=== PATIENT | female | born 1990 | race Caucasian/White ===

== ENCOUNTER 2016-06-24 11:32 | Inpatient (IN) | payer BC ==
[2016-06-24] MEDS: LACTATED RINGERS 1,000 ML IV SCH ×3 (12:05→19:40)
[2016-06-24] MEDS ORDERED: NALOXONE HYDROCHLORIDE 0.4 MG/ML SOL IV PRN (12:07)
[2016-06-24] MEDS ORDERED: EPHEDRINE SULFATE 50 MG/ML SOL IV PRN (12:07)
[2016-06-24] MEDS ORDERED: DIPHENHYDRAMINE 50 MG/ML SOL IV PRN (12:07)
[2016-06-24] MEDS ORDERED: NALBUPHINE HCL 20 MG/ML SOL IV PRN (12:07)
[2016-06-24] MEDS ORDERED: LACTATED RINGERS 1,000 ML IV SCH ×3 (12:15→22:30)
[2016-06-24] MEDS ORDERED: ROPIVACAINE HYDROCHLORIDE 5 MG/ML SOL ONE (12:19)
[2016-06-24] MEDS ORDERED: FENTANYL 250 MCG/ 5ML SOL ONE (12:20)
[2016-06-24 12:26] LABS: BASOPHILS % (AUTO) 1 % (0-3); EOSINOPHILS % (AUTO) 0 % (0-9); HEMATOCRIT 35 % (35-47); MEAN CORPUSCULAR HGB CONC 36.5 gm/dl (32.0-36.0); MEAN CORPUSCULAR VOLUME 91 fL (81-99); MONOCYTES % (AUTO) 4.1 % (0-12); NEUTROPHILS % (AUTO) 70.9 % (37-80)
[2016-06-24] MEDS ORDERED: SODIUM CHLORIDE 0.9% FLUSH 10 ML SOL IV SCH (12:30)
[2016-06-24] MEDS ORDERED: FENTANYL 100MCG/2ML SOL IV PRN (12:40)
[2016-06-24] MEDS ORDERED: SODIUM CHLORIDE 0.9% FLUSH 10 ML SOL IV PRN (12:40)
[2016-06-24] MEDS ORDERED: OXYTOCIN 10000 MU/ML SOL IM PRN (12:40)
[2016-06-24] MEDS ORDERED: MEPIVACAINE HCL 1% MPF 30 ML SOL INFIL PRN (12:40)
[2016-06-24] MEDS ORDERED: METHYLERGONOVINE MALEATE 0.2 MG/ML SOL IM PRN (12:40)
[2016-06-24] MEDS ORDERED: LACTATED RINGERS 1,000 ML IV PRN (12:40)
[2016-06-24] MEDS ORDERED: CARBOPROST 250 MCG/ML SOL IM PRN (12:40)
[2016-06-24] MEDS ORDERED: SODIUM CHLORIDE 0.9% 50 ML 25 ML IV PRN (13:22)
[2016-06-24] MEDS ORDERED: CEFAZOLIN SODIUM 1 GM PDS IVP ONE (13:22)
[2016-06-24] MEDS ORDERED: CITRIC ACID/SODIUM CITRATE SOL PO ONE (13:22)
[2016-06-24] MEDS ORDERED: CEFAZOLIN SODIUM 1 GM PDS ONE (13:51)
[2016-06-24] MEDS ORDERED: OXYTOCIN 10000 MU/ML SOL ONE (13:51)
[2016-06-24 14:05] LABS: ABO O; ANTIBODY SCREEN Negative; RH TYPE Positive
[2016-06-24] MEDS ORDERED: MORPHINE SULFATE 0.5 MG/ML SOL ONE (14:11)
[2016-06-24] MEDS ORDERED: [UNRECOGNIZED DRUG - OTHER] IV ONE (14:14)
[2016-06-24] MEDS ORDERED: KETOROLAC TROMETHAMINE 30 MG/ML SOL ONE (15:09)
[2016-06-24] MEDS ORDERED: MORPHINE SULFATE 10 MG/ML SOL ONE (15:36)
[2016-06-24] MEDS ORDERED: DIPHENHYDRAMINE 25 MG CAP PO PRN (16:12)
[2016-06-24] MEDS ORDERED: TEMAZEPAM 15MG 15 MG CAP PO PRN ×2 (16:12)
[2016-06-24] MEDS ORDERED: METHYLERGONOVINE MALEATE 0.2 MG TAB PO PRN ×2 (16:12)
[2016-06-24] MEDS ORDERED: WITCH HAZEL 1 EA PAD TOP PRN ×2 (16:12)
[2016-06-24] MEDS ORDERED: ONDANSETRON HCL 4 MG/2 ML SOL IV PRN (16:12)
[2016-06-24] MEDS ORDERED: BISACODYL 10 MG SUP PR PRN ×2 (16:12)
[2016-06-24] MEDS ORDERED: IBUPROFEN 600 MG TAB PO PRN (16:12)
[2016-06-24] MEDS ORDERED: FLEET ENEMA PR PRN ×2 (16:12)
[2016-06-24] MEDS ORDERED: BENZOCAINE/MENTHOL 1 SPR TOP PRN ×2 (16:12)
[2016-06-24] MEDS ORDERED: APAP/HYDROCODONE 325/5 TAB PO PRN (16:12)
[2016-06-24] MEDS: APAP/HYDROCODONE 325/5 TAB PO PRN ×2 (16:53→21:03)
[2016-06-24] MEDS ORDERED: CEFAZOLIN (PREMIX) 1 GM 1 GM/50 ML SOL IV SCH (19:22)
[2016-06-24] MEDS ORDERED: CEFAZOLIN (PREMIX) 1 GM 1 GM/50 ML SOL IV ONE (19:48)
[2016-06-24] MEDS ORDERED: DOCUSATE SODIUM 100 MG SGL PO SCH (21:00)
[2016-06-24] MEDS: DOCUSATE SODIUM 100 MG SGL PO SCH (21:03)
[2016-06-24] MEDS: KETOROLAC TROMETHAMINE 30 MG/ML SOL IV PRN (21:45)
[2016-06-25] MEDS: APAP/HYDROCODONE 325/5 TAB PO PRN ×4 (02:34→18:03)
[2016-06-25] MEDS: KETOROLAC TROMETHAMINE 30 MG/ML SOL IV PRN ×2 (04:13→10:15)
[2016-06-25] MEDS: SODIUM CHLORIDE 0.9% FLUSH 10 ML SOL IV SCH ×3 (08:10→18:08)
[2016-06-25] MEDS: FERROUS SULFATE 325 MG TAB PO SCH (09:03)
[2016-06-25] MEDS: DOCUSATE SODIUM 100 MG SGL PO SCH ×2 (09:03→21:27)
[2016-06-25] MEDS: IBUPROFEN 600 MG TAB PO PRN ×2 (15:37→21:27)
[2016-06-26] MEDS: APAP/HYDROCODONE 325/5 TAB PO PRN ×4 (00:10→22:45)
[2016-06-26] MEDS: SODIUM CHLORIDE 0.9% FLUSH 10 ML SOL IV SCH ×2 (02:31→19:49)
[2016-06-26] MEDS: IBUPROFEN 600 MG TAB PO PRN ×3 (05:56→21:37)
[2016-06-26] MEDS: DOCUSATE SODIUM 100 MG SGL PO SCH ×2 (08:41→21:37)
[2016-06-26] MEDS: FERROUS SULFATE 325 MG TAB PO SCH (08:41)
[2016-06-26 22:30] VITALS: O2SAT 99
[2016-06-27] MEDS: APAP/HYDROCODONE 325/5 TAB PO PRN ×2 (04:11→10:20)
[2016-06-27 08:14] VITALS: BP 104/66; PULSE 74; RESP 16; TEMP 97.3
[2016-06-27] MEDS: DOCUSATE SODIUM 100 MG SGL PO SCH (10:21)
[2016-06-27] MEDS: FERROUS SULFATE 325 MG TAB PO SCH (10:21)
[2016-06-27] MEDS: IBUPROFEN 600 MG TAB PO PRN (10:21)
== END 2016-06-27 10:45 | disposition home or self-care (01) | DRG 540 ==
LOC: UNDOADMOB 11:32 → OB 11:32 → OBSVTOIN 11:32 → OB 14:10 → UNDOADMOB 14:10 → INTOOBSV 14:10 → UNDODISIN 06-27 10:45
PROVIDERS: ADMIT Emergency Medicine; ATTEND Emergency Medicine
PROC: 10D00Z1 Extraction of Products of Conception, Low, Open Approach (ICD-10-PCS; principal; 2016-06-24 14:00)
DX: O32.1XX0 Maternal care for breech presentation, not applicable or unspecified (principal); Z37.0 Single live birth; Z3A.39 39 weeks gestation of pregnancy
CPT/HCPCS: 36415; 59025; 85018; 85025; 86850; 86900; 86901; J0690; J1885; J2001; J2270; J2274; J2590; J2795; J3010

== ENCOUNTER 2018-02-15 09:38 | Observation (INO) | payer BC ==
[2018-02-15 10:11] VITALS: BP 110/69; PULSE 85; TEMP 97.3
[2018-02-15] MEDS ORDERED: LACTATED RINGERS 1,000 ML IV ONE (10:11)
[2018-02-15] MEDS ORDERED: SODIUM CHLORIDE 0.9% FLUSH 10 ML SOL IV SCH (10:15)
[2018-02-15] MEDS ORDERED: SODIUM CHLORIDE 0.9% 500 ML 500 ML IV ONE (11:38)
== END 2018-02-15 13:35 | disposition home or self-care (01) ==
LOC: OB 09:55 → OBOP 09:55 → OB 09:56 → UNDOADMOB 09:56 → OBOP 13:35 → EDSTATUS 14:08
PROVIDERS: ADMIT Family Medicine; ATTEND Family Medicine
DX: O47.03 False labor before 37 completed weeks of gestation, third trimester (principal); Z3A.35 35 weeks gestation of pregnancy
CPT/HCPCS: 59025; 82731

== ENCOUNTER 2018-03-15 04:45 | Inpatient (IN) | payer BC ==
[2018-03-15] MEDS ORDERED: CITRIC ACID/SODIUM CITRATE SOL PO SCH (05:00)
[2018-03-15] MEDS: LACTATED RINGERS 1,000 ML IV SCH ×4 (05:36→16:55)
[2018-03-15] MEDS ORDERED: OXYTOCIN 10000 MU/ML SOL ONE (05:41)
[2018-03-15] MEDS ORDERED: PHENYLEPHRINE HYDROCHLORIDE 10 MG/ML SOL ONE (05:41)
[2018-03-15] MEDS ORDERED: ONDANSETRON HCL 4 MG/2 ML SOL ONE (05:41)
[2018-03-15] MEDS ORDERED: CEFAZOLIN SODIUM 1 GM PDS ONE (05:41)
[2018-03-15] MEDS ORDERED: FENTANYL 100MCG/2ML SOL ONE (05:42)
[2018-03-15] MEDS ORDERED: BUPIVACAINE HCL 0.25% MPF 30 ML SOL INFIL ONE (05:48)
[2018-03-15] MEDS ORDERED: BUPIVACAINE/EPI 0.25% 50 ML SOL ONE (05:49)
[2018-03-15] MEDS ORDERED: DEXAMETHASONE 20 MG/5 ML (4 MG/ML SOL) ONE (06:40)
[2018-03-15] MEDS ORDERED: LACTATED RINGERS 1,000 ML with OXYTOCIN 10000 MU/ML 20 MU IV ONE (06:46)
[2018-03-15 07:23] LABS: APPEARANCE,URINE Slightly Cloudy; BILIRUBIN,URINE NEGATIVE (NEGATIVE); COLOR,URINE Yellow; GLUCOSE, URINE (UA) NEGATIVE (NEGATIVE); KETONES,URINE NEGATIVE (NEGATIVE); LEUKOCYTE ESTERASE ,URINE 1+ (NEGATIVE); NITRATE,URINE NEGATIVE (NEGATIVE); OCCULT BLOOD,URINE NEGATIVE (NEG-TRACE); UROBILINOGEN,URINE 0.2 (0.2-1.0 EU)
[2018-03-15 07:44] LABS: BACTERIA 1+ (< 1+); CRYSTALS NEGATIVE (0-3 AVE/HPF); RBC,URINE NEG (0-3AV/HPF)
[2018-03-15] MEDS ORDERED: BENZOCAINE/MENTHOL 1 SPR TOP PRN (08:29)
[2018-03-15] MEDS ORDERED: METHYLERGONOVINE MALEATE 0.2 MG TAB PO PRN (08:29)
[2018-03-15] MEDS ORDERED: ONDANSETRON HCL 4 MG/2 ML SOL IV PRN (08:29)
[2018-03-15] MEDS ORDERED: WITCH HAZEL 1 EA PAD TOP PRN (08:29)
[2018-03-15] MEDS ORDERED: DIPHENHYDRAMINE 25 MG CAP PO PRN (08:29)
[2018-03-15] MEDS ORDERED: TEMAZEPAM 15MG 15 MG CAP PO PRN (08:29)
[2018-03-15] MEDS ORDERED: FLEET ENEMA PR PRN (08:29)
[2018-03-15] MEDS ORDERED: BISACODYL 10 MG SUP PR PRN (08:29)
[2018-03-15] MEDS: KETOROLAC TROMETHAMINE 30 MG/ML SOL IV PRN ×3 (09:07→22:49)
[2018-03-15] MEDS: APAP/HYDROCODONE 1 EACH TABLET PO PRN ×4 (10:04→21:51)
[2018-03-15] MEDS: DOCUSATE SODIUM 100 MG SGL PO SCH ×2 (11:29→21:51)
[2018-03-15] MEDS ORDERED: HYDROMORPHONE 1 MG/ML SYRINGE IV ONE (11:30)
[2018-03-15] MEDS ORDERED: HYDROMORPHONE 1 MG/ML SYRINGE ONE (11:35)
[2018-03-15] MEDS: SODIUM CHLORIDE 0.9% FLUSH 10 ML SOL IV SCH ×4 (11:48→21:51)
[2018-03-15] MEDS ORDERED: HYDROMORPHONE 1 MG/ML SYRINGE IV PRN (19:14)
[2018-03-16] MEDS: APAP/HYDROCODONE 1 EACH TABLET PO PRN ×6 (01:54→23:59)
[2018-03-16] MEDS: SODIUM CHLORIDE 0.9% FLUSH 10 ML SOL IV SCH ×2 (04:05→11:00)
[2018-03-16] MEDS: KETOROLAC TROMETHAMINE 30 MG/ML SOL IV PRN (04:05)
[2018-03-16] MEDS: DOCUSATE SODIUM 100 MG SGL PO SCH ×2 (09:10→21:14)
[2018-03-16] MEDS: FERROUS GLUCONATE 324 MG TABLET PO SCH (09:50)
[2018-03-16] MEDS: IBUPROFEN 600 MG TAB PO PRN ×2 (10:26→16:59)
[2018-03-17] MEDS: APAP/HYDROCODONE 1 EACH TABLET PO PRN ×6 (07:01→23:43)
[2018-03-17] MEDS: IBUPROFEN 600 MG TAB PO PRN ×5 (07:01→23:43)
[2018-03-17] MEDS: DOCUSATE SODIUM 100 MG SGL PO SCH ×2 (08:28→21:27)
[2018-03-17] MEDS: FERROUS GLUCONATE 324 MG TABLET PO SCH (08:28)
[2018-03-17 15:41] VITALS: RESP 20
[2018-03-17 21:39] VITALS: TEMP 99
[2018-03-18] MEDS: APAP/HYDROCODONE 1 EACH TABLET PO PRN ×2 (06:09→09:03)
[2018-03-18] MEDS: IBUPROFEN 600 MG TAB PO PRN (06:09)
[2018-03-18 07:52] VITALS: BP 101/66; PULSE 85; O2SAT 99
[2018-03-18] MEDS: DOCUSATE SODIUM 100 MG SGL PO SCH (09:03)
[2018-03-18] MEDS: FERROUS GLUCONATE 324 MG TABLET PO SCH (09:04)
== END 2018-03-18 10:50 | disposition home or self-care (01) | DRG 540 ==
LOC: OB 04:45 → EDSTATUS 06:00
PROVIDERS: ADMIT Family Medicine; ATTEND Family Medicine
PROC: 10D00Z1 Extraction of Products of Conception, Low, Open Approach (ICD-10-PCS; principal; 2018-03-15 06:00)
DX: O82 Encounter for cesarean delivery without indication (principal); O34.211 Maternal care for low transverse scar from previous cesarean delivery; Z37.0 Single live birth; Z3A.39 39 weeks gestation of pregnancy
CPT/HCPCS: 36415; 59025; 81001; 85018; 87088; J0690; J1100; J1885; J2405; J2590; J3010; A9270-GY; J1170; J2370